=== PATIENT | male | born 1960 | race Caucasian/White ===

== ENCOUNTER 2020-02-18 06:26 | Observation (INO) ==
[2020-02-18] MEDS ORDERED: SODIUM CHLORIDE 0.9% 1,000 ML IV STA (07:03)
[2020-02-18] MEDS ORDERED: ONDANSETRON 4 MG/2 ML VIAL IV STA ×2 (07:03→08:28)
[2020-02-18] MEDS ORDERED: HYDROmorphone 2 MG/1 ML VIAL IV STA ×2 (07:03→08:08)
[2020-02-18 07:49] LABS: Basophils % 0.4 % (0.0-0.8); Eosinophils % 0.1 % (0.00-10.9); Hematocrit 41.9 VOL% (42.0-52.0); Hemoglobin 13.7 GM/DL (14.0-18.0); Immature Granulocytes % 0.9 %; Immature Granulocytes Absolute 0.07 #; Lymphocytes # 0.5 10*3/uL (1.4-4.0); Lymphocytes % 6.2 % (21.2-54.2); Mean Corpuscular HGB Conc 32.7 GM/DL (32-36); Mean Corpuscular Volume 87.7 FL (87-102); Monocytes % 5.1 % (1.7-12.7); Neutrophils % 87.3 % (38.7-73.9); Platelet Count 229 T/CUMM (130-400); Red Blood Count 4.78 MC/CUMM (3.8-5.5); Red Cell Distribution Width 12.5 % (9.3-17.3); White Blood Count 8.2 T/CUMM (4-12)
[2020-02-18 08:11] LABS: Calcium 9.2 MG/DL (8.5-10.1); Osmolality,Calculated 282.8 MOS/KG (273-304)
[2020-02-18] MEDS ORDERED: KETOROLAC 30 MG/1 ML VIAL IV STA (08:28)
[2020-02-18] MEDS ORDERED: KETOROLAC 30 MG/1 ML VIAL ONE (08:29)
[2020-02-18] MEDS ORDERED: PROMETHAZINE 25 MG/1 ML VIAL IM PRN (08:38)
[2020-02-18] MEDS ORDERED: ONDANSETRON 4 MG/2 ML VIAL IV PRN (08:38)
[2020-02-18] MEDS ORDERED: ACETAMINOPHEN 325 MG TABLET PO PRN (08:38)
[2020-02-18 10:25] LABS: Bilirubin,Urine Negative (Negative); Blood, Urine Moderate mg/dL (Negative); Glucose,Urine (UA) Negative (Negative); Ketones,Urine Negative (Negative); Mucus,Urine Occasional /LPF (Occasional); Nitrite,Urine Negative (Negative); Protein,Urine Negative; RBC,Urine 25 /HPF (0-4); Urine Appearance CLEAR (Clear); Urine Color Straw (Yellow); Urine Specific Gravity 1.013 (1.001-1.035); Urine Urobilinogen < 2.0 EU/DL (0.2-1.0)
[2020-02-18] MEDS: amLODIPine 5 MG TABLET PO SCH (11:01)
[2020-02-18] MEDS: ATORVASTATIN 40 MG TABLET PO SCH (11:01)
[2020-02-18] MEDS: FENOFIBRATE 160 MG TABLET PO SCH (11:01)
[2020-02-18] MEDS: SODIUM CHLORIDE 0.45% 1,000 ML IV SCH ×2 (11:03→18:13)
[2020-02-18] MEDS: HYDROmorphone 2 MG/1 ML VIAL IV PRN ×2 (13:45→19:04)
[2020-02-19] MEDS: SODIUM CHLORIDE 0.45% 1,000 ML IV SCH ×2 (00:56→11:41)
[2020-02-19] MEDS: HYDROmorphone 2 MG/1 ML VIAL IV PRN (05:04)
[2020-02-19] MEDS ORDERED: cefTRIAXone 1,000 MG in SYRINGE 1 EACH IV ONE (09:00)
[2020-02-19] MEDS: ATORVASTATIN 40 MG TABLET PO SCH (09:12)
[2020-02-19] MEDS: FENOFIBRATE 160 MG TABLET PO SCH (09:12)
[2020-02-19] MEDS: amLODIPine 5 MG TABLET PO SCH (09:12)
[2020-02-19] MEDS ORDERED: FAMOTIDINE 20 MG TABLET PO ONE (09:19)
[2020-02-19] MEDS ORDERED: DIAZEPAM 5 MG TABLET PO ONE (09:19)
[2020-02-19] MEDS ORDERED: LACTATED RINGERS 1,000 ML IV SCH (09:30)
[2020-02-19] MEDS ORDERED: propofoL 200 MG/20 ML VIAL IV ONE (13:46)
[2020-02-19] MEDS ORDERED: MIDAZOLAM 2 MG/2 ML VIAL ONE (13:46)
[2020-02-19] MEDS ORDERED: LIDOCAINE 2% 5 ML VIAL ONE (13:46)
[2020-02-19] MEDS ORDERED: fentaNYL 100 MCG/2 ML VIAL ONE (13:46)
[2020-02-19] MEDS ORDERED: ceFAZolin 1,000 MG VIAL ONE (14:06)
[2020-02-19] MEDS ORDERED: ONDANSETRON 4 MG/2 ML VIAL ONE (14:35)
[2020-02-19] MEDS ORDERED: KETOROLAC 30 MG/1 ML VIAL IV ONE (15:04)
[2020-02-19] MEDS ORDERED: KETOROLAC 30 MG/1 ML VIAL ONE (15:07)
[2020-02-19 15:39] VITALS: BP 143/78
== END 2020-02-19 17:02 | disposition home or self-care (01) ==
LOC: N.ED 06:26 → N.EDINP 06:26 → N.3E 09:44
PROVIDERS: ADMIT Surgery; ATTEND Surgery